=== PATIENT | male | born 2005 | race Caucasian/White ===

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

== ENCOUNTER 2024-11-29 17:10 | Emergency (ER) | payer OTHER ==
[2024-11-29] MEDS: Fluorescein 1 MG Ophth Strip EYELF ONE (17:42)
[2024-11-29] MEDS: Proparacaine 0.5% Ophth Soln 15 ML Bottle EYELF ONE (17:42)
[2024-11-29] MEDS: Ciprofloxacin 0.3% Ophth Soln 5 ML Bottle EYELF ONE (18:05)
== END 2024-11-29 18:07 | disposition home or self-care (01) ==
LOC: JD.ED 17:10
DX: S05.02XA Injury of conjunctiva and corneal abrasion without foreign body, left eye, initial encounter (principal); X58.XXXA Exposure to other specified factors, initial encounter
CPT/HCPCS: 99283; J3490